=== PATIENT | female | born 1995 ===

== ENCOUNTER 2016-10-10 08:08 | Observation (INO) | payer MEDICAID ==
[2016-10-10 08:08] VITALS: BMI 23.6
[2016-10-10 08:15] VITALS: TEMP 98.7; O2SAT 100
[2016-10-10] MEDS ORDERED: Sodium Chloride 0.9% 1,000 ML IV STA (08:27)
[2016-10-10] MEDS ORDERED: Iohexol 240 (50 ml) PO ONE (08:28)
--- NOTE | 2016-10-10 08:31 | ED PDOC ---
HPI: Abdomen Time Seen by Provider: 10/10/16 08:11 Chief Complaint (Nursing): Abdominal Pain Chief Complaint (Provider): Abdominal Pain History Per: Patient History/Exam Limitations: no limitations Onset/Duration Of Symptoms: Days Current Symptoms Are (Timing): Still Present Severity: Moderate Location Of Pain/Discomfort: RLQ, Epigastric Quality Of Discomfort: "Pain" Associated Symptoms: Nausea, Vomiting, Constipation. denies: Urinary Symptoms Exacerbating Factors: None Alleviating Factors: None Additional Complaint(s): Patient is a 21 year old female who presents to ED for evaluation of abdominal pain that began 1 weeks ago but worsened last night. Patient reports pain is associated with nausea, vomiting and occasional dizziness. Patient denies fever , diarrhea, back pain, urinary changes or headache. Patient notes that her last BM was 3 days ago. Took tony seltzer without any relief. Past Medical History Reviewed: Historical Data, Nursing Documentation, Vital Signs Vital Signs: Last Vital Signs Temp 98.7 F 10/10/16 08:14 Pulse 75 10/10/16 08:14 Resp 19 10/10/16 08:14 BP 111/70 10/10/16 08:14 Pulse Ox 100 10/10/16 08:34 - Medical History PMH: Asthma - Surgical History Surgical History: No Surg Hx - Family History Family History: States: Unknown Family Hx - Living Arrangements Living Arrangements: With Family - Immunization History Hx Tetanus Toxoid Vaccination: No Hx Influenza Vaccination: No Hx Pneumococcal Vaccination: No - Home Medications Home Medications: Ambulatory Orders Medication Instructions Recorded Ferrous Sulfate [Feosol] 325 mg PO BID #0 06/25/16 Ibuprofen [Motrin Tab] 600 mg PO Q6H PRN #30 tab 06/25/16 - Allergies Allergies/Adverse Reactions: Allergies Allergy/AdvReac Type Severity Reaction Status Date / Time Penicillins Allergy SHORTNESS Verified 06/24/16 20:27 OF BREATH Review of Systems ROS Statement: Except As Marked, All Systems Reviewed And Found Negative Constitutional: Negative for: Fever, Chills Gastrointestinal: Positive for: Nausea, Vomiting, Abdominal Pain, Constipation. Negative for: Diarrhea Genitourinary Female: Negative for: Dysuria, Hematuria Musculoskeletal: Negative for: Back Pain Neurological: Positive for: Dizziness. Negative for: Headache Physical Exam - Reviewed Nursing Documentation Reviewed: Yes Vital Signs Reviewed: Yes - Physical Exam Appears: Positive for: Non-toxic, No Acute Distress Skin: Positive for: Normal Color, Warm Eye Exam: Positive for: Normal appearance Neck: Positive for: Normal, Painless ROM Cardiovascular/Chest: Positive for: Regular Rate, Rhythm. Negative for: Murmur Respiratory: Positive for: Normal Breath Sounds. Negative for: Respiratory Distress Gastrointestinal/Abdominal: Positive for: Soft, Tenderness (RLQ and epigastric) . Negative for: Distended, Guarding, Rebound Back: Positive for: Normal Inspection. Negative for: L CVA Tenderness, R CVA Tenderness Extremity: Positive for: Normal ROM Neurologic/Psych: Positive for: Alert, Oriented - Laboratory Results Result Diagrams: 10/10/16 08:35 10/10/16 08:35 Interpretation Of Abn Labs: no acute - ECG O2 Sat by Pulse Oximetry: 100 (RA) Pulse Ox Interpretation: Normal - CT Scan/US ct Other Rad Studies (CT/US): Read By Radiologist Other Rad Interpretation: no acute - Progress ED Course And Treament: 1333: Stable. AAOx3. Pain free. Tolerated PO. FU PCP. Medical Decision Making Medical Decision Making: Time: 819 Initial impression: Abdominal pain r/o appendicitis Initial plan: -- CT-abdomen -- CMP -- Lipase -- Urine preg -- Urine dip -- CBC -- NSF, Pepcid and Toradol -- ED obs Scribe Attestation: Documented by Anna Galvin acting as a scribe for Gokul Valadez MD MD Scribe Attestation: All medical record entries made by the Scribe were at my direction and personally dictated by me. I have reviewed the chart and agree that the record accurately reflects my personal performance of the history, physical exam, medical decision making, and the department course for this patient. I have also personally directed, reviewed, and agree with the discharge instructions and disposition. ED OBSERVATION Discharge: Yes Date of observation admission: 10/10/16 Time of observation admission: 08:28 - Observation admission statement Patient is being placed in observation because:: Pending CT and labs - Goals of Observation Goals of observation are:: pain eval Disposition - Clinical Impression Clinical Impression: Abdominal pain - Patient ED Disposition Is Patient to be Admitted: No Counseled Patient/Family Regarding: Studies Performed, Diagnosis, Need For Followup - Disposition Disposition: Routine/Home Disposition Time: 13:34 Condition: STABLE
[2016-10-10 08:51] LABS: BASO % 0.6 % (0.0-2.0); EOS % 0.8 % (0.0-4.0); HEMATOCRIT 37.8 % (34.0-47.0); LYMPH # 1.9 K/uL (1.0-4.3); LYMPH % 33.1 % (20.0-40.0); MEAN CELL VOLUME 82.4 fl (81.0-99.0); MEAN CORPUSCULAR HEMOGLOBIN 26.6 pg (27.0-31.0); MEAN CORPUSCULAR HGB CONC 32.3 g/dL (33.0-37.0); MEAN PLATELET VOLUME 9.4 fl (7.2-11.7); MONO # 0.4 K/uL (0.0-0.8); MONO % 6.7 % (0.0-10.0); NEUT # 3.3 K/uL (1.8-7.0); NEUT % 58.8 % (50.0-75.0); NRBC % 0.1 % (0.0-0.0); RED CELL DISTRIBUTION WIDTH 14.6 % (11.5-14.5); WHITE BLOOD COUNT 5.6 K/uL (4.8-10.8)
[2016-10-10 09:06] LABS: ALB/GLOB RATIO 1.1 (1.0-2.1); ALKALINE PHOSPHATASE 60 U/L (38-126); ALT/SGPT 23 U/L (9-52); AST/SGOT 25 U/L (14-36); BILIRUBIN,TOTAL 0.5 mg/dl (0.2-1.3); BLOOD UREA NITROGEN 15 mg/dl (7-17); CALCIUM 9.5 mg/dL (8.4-10.2); CARBON DIOXIDE 23 mmol/L (22-30); CHLORIDE 106 mmol/L (98-107); GFR AFRICAN-AMERICAN > 60; GLUCOSE,RANDOM 95 mg/dL (65-105); LIPASE 92 U/L (23-300); POTASSIUM 3.8 MMOL/L (3.6-5.0); SODIUM 144 mmol/l (132-148); TOTAL PROTEIN 8.3 G/DL (6.3-8.2)
[2016-10-10] MEDS ORDERED: Iohexol 240 (50 ml) ONE (09:13)
[2016-10-10] MEDS ORDERED: Iohexol 300 100 ML IJ ONE (12:20)
[2016-10-10] MEDS ORDERED: Sodium Chloride 0.9% 50 ML IV ONE (12:20)
--- NOTE | 2016-10-10 13:11 | CT ---
PROCEDURE: CT Abdomen and Pelvis with contrast HISTORY: abd pain COMPARISON: None. TECHNIQUE: Contrast dose: Radiation dose: Total exam DLP = mGy-cm. This CT exam was performed using one or more of the following dose reduction techniques: Automated exposure control, adjustment of the mA and/or kV according to patient size, and/or use of iterative reconstruction technique. FINDINGS: LOWER THORAX: Unremarkable. LIVER: Unremarkable. No gross lesion or ductal dilatation. GALLBLADDER AND BILE DUCTS: Unremarkable. PANCREAS: Unremarkable. No gross lesion or ductal dilatation. SPLEEN: Unremarkable. ADRENALS: Unremarkable. No mass. KIDNEYS AND URETERS: Unremarkable. No hydronephrosis. No solid mass. VASCULATURE: Unremarkable. No aortic aneurysm. BOWEL: Unremarkable. No obstruction. No gross mural thickening. APPENDIX: Normal appendix. PERITONEUM: Unremarkable. No free fluid. No free air. LYMPH NODES: Unremarkable. No enlarged lymph nodes. BLADDER: Unremarkable. REPRODUCTIVE: Tampon in the vagina.. BONES: No acute fracture. OTHER FINDINGS: None. IMPRESSION: Unremarkable contrast enhanced CT of the abdomen and pelvis.
[2016-10-10 14:30] VITALS: BP 120/72; PULSE 70; RESP 16
== END 2016-10-10 14:34 | disposition home or self-care (01) ==
LOC: H.ER 08:08 → H.EROBSV 08:28
PROVIDERS: ADMIT Emergency Medicine; ATTEND Emergency Medicine
DX: R10.31 Right lower quadrant pain (principal); R10.13 Epigastric pain; J45.909 Unspecified asthma, uncomplicated; Z88.0 Allergy status to penicillin
CPT/HCPCS: 36415; 74177; 80053; 81025; 83690; 85025; 96374; 99283; G0378; J1885; J7040; Q9966; Q9967

== ENCOUNTER 2018-02-26 14:43 | Emergency (ER) | payer MEDICAID ==
[2018-02-26 14:44] VITALS: BMI 23.6
[2018-02-26 15:07] VITALS: BP 115/73; PULSE 76; RESP 16; TEMP 98.5; O2SAT 99
--- NOTE | 2018-02-26 15:57 | ED PDOC ---
HPI: Allergic Reaction Time Seen by Provider: 02/26/18 15:11 Chief Complaint (Nursing): Allergic Reaction Chief Complaint (Provider): Itchy red bumps History Per: Patient Onset/Duration Of Symptoms: Days Home/EMS Treatment: None Additional Complaint(s): 22 yo female with hx of asthma presents for evaluation of itchy red bumps for 3 days. Pt states she is staying with friend. multiple on lower legs and hands, 1 on right cheek and 2 on right neck. No fever/chills. Eating and drinking normally. No history of allergic reactions. No new foods, lotions, etc. Past Medical History Reviewed: Historical Data, Nursing Documentation, Vital Signs Vital Signs: Last Vital Signs Temp 98.5 F 02/26/18 15:05 Pulse 76 02/26/18 15:05 Resp 16 02/26/18 15:05 BP 115/73 02/26/18 15:05 Pulse Ox 99 02/26/18 15:05 - Medical History PMH: Asthma - Family History Family History: States: Unknown Family Hx - Immunization History Hx Tetanus Toxoid Vaccination: No Hx Influenza Vaccination: No Hx Pneumococcal Vaccination: No - Home Medications Home Medications: Ambulatory Orders Medication Instructions Recorded Ferrous Sulfate [Feosol] 325 mg PO BID #0 06/25/16 Ibuprofen [Motrin Tab] 600 mg PO Q6H PRN #30 tab 06/25/16 Hydrocortisone 1% Cream [Cortizone 30 applic TOP BID #1 tube 02/26/18 1% Cream] - Allergies Allergies/Adverse Reactions: Allergies Allergy/AdvReac Type Severity Reaction Status Date / Time Penicillins Allergy SHORTNESS Verified 06/24/16 20:27 OF BREATH Review of Systems ROS Statement: Except As Marked, All Systems Reviewed And Found Negative Constitutional: Negative for: Fever, Chills Skin: Positive for: Rash Physical Exam - Reviewed Nursing Documentation Reviewed: Yes Vital Signs Reviewed: Yes - Physical Exam Appears: Positive for: Well, Non-toxic, No Acute Distress Head Exam: Positive for: ATRAUMATIC, NORMAL INSPECTION, NORMOCEPHALIC Skin: Positive for: Warm, Rash ((+) insect bites). Negative for: Normal Color Eye Exam: Positive for: Normal appearance ENT: Positive for: Normal ENT Inspection Neck: Positive for: Normal, Painless ROM Cardiovascular/Chest: Positive for: Regular Rate, Rhythm Respiratory: Positive for: CNT, Normal Breath Sounds Gastrointestinal/Abdominal: Positive for: Normal Exam, Soft Back: Positive for: Normal Inspection Extremity: Positive for: Normal ROM Neurologic/Psych: Positive for: Alert, Oriented - ECG O2 Sat by Pulse Oximetry: 99 Disposition - Clinical Impression Clinical Impression: Insect bites - Patient ED Disposition Is Patient to be Admitted: No Counseled Patient/Family Regarding: Diagnosis, Need For Followup, Rx Given - Disposition Disposition: Routine/Home Disposition Time: 15:57 Condition: GOOD Additional Instructions: Do not use cream/lotion on face Prescriptions: Hydrocortisone 1% Cream [Cortizone 1% Cream] 30 applic TOP BID #1 tube Instructions: Insect Bites and Stings (DC)
== END 2018-02-26 17:17 | disposition home or self-care (01) ==
LOC: H.ER 14:43
DX: T78.40XA Allergy, unspecified, initial encounter (principal); Z88.0 Allergy status to penicillin